=== PATIENT | female | born 1960 | race Caucasian/White ===

== ENCOUNTER 2016-12-03 20:05 | Inpatient (IN) | payer OTHER ==
[~2016-12-03] VITALS: Ht 157.5 cm; Wt 75.5 kg
[2016-12-03 20:47] LABS: PLATELET COUNT 245 x10^3mcL (130-400); RED CELL DISTRIBUTION WIDTH 12.7 % (11.5-14.5)
[2016-12-03 20:57] LABS: CALCIUM 9.3 mg/dL (8.5-10.1); CARBON DIOXIDE 29.8 mmol/L (21-32); CHLORIDE SERUM 102 mmol/L (98-107); CREATININE SERUM 0.8 mg/dL (0.6-1.0); GFR1 > 60 mL/min; GLUCOSE SERUM 139 mg/dL (74-106); POTASSIUM SERUM 3.8 mmol/L (3.5-5.1); SODIUM SERUM 141 mmol/L (136-145)
[2016-12-03 21:12] LABS: ALKALINE PHOSPHATASE 82 U/L (46-116); ALT/SGPT 85 U/L (14-59); AST/SGOT 31 U/L (15-37); BILIRUBIN TOTAL 0.3 mg/dL (0.20-1.00); TOTAL PROTEIN, SERUM 7.6 g/dL (6.4-8.2)
[2016-12-03 23:35] LABS: microscopic required? NO
[2016-12-03 23:42] LABS: urine erythrocyte NEGATIVE (NEGATIVE)
[2016-12-03 23:50] LABS: AMYLASE 43 U/L (25-115); HDL CHOLESTEROL 37 mg/dL (40-60); LIPASE 181 IU/L (73-393)
[2016-12-03 23:51] LABS: CHOLESTEROL 278 mg/dL (<200); CHOLESTEROL/HDL RATIO 7.5; TRIGLYCERIDES 517 mg/dL (<150)
[2016-12-03 23:52] LABS: AMPHETAMINE QUAL UR NONE DETECTED (NEG <=1000)
[2016-12-03 23:58] LABS: FREE T4 0.81 ng/dL (0.76-1.46); FREE THYROXINE INDEX 2.2 ug/dL (1.4-4.5); T4(THYROXINE) 6.4 ug/dL (4.7-13.3)
[2016-12-04] VITALS (8 sets, daily range): BP systolic 105–159; BP diastolic 64–91
[2016-12-04 00:26] LABS: T3 TOTAL 0.95 ng/mL
[2016-12-04 06:57] LABS: BASOPHIL % 0.4 % (0-2); PLATELET COUNT 233 x10^3mcL (130-400)
[2016-12-04 07:22] LABS: CALCIUM 9.5 mg/dL (8.5-10.1); CARBON DIOXIDE 27.4 mmol/L (21-32); CHLORIDE SERUM 102 mmol/L (98-107); CREATININE SERUM 0.8 mg/dL (0.6-1.0); GFR1 > 60 mL/min; GLUCOSE SERUM 137 mg/dL (74-106); PHOSPHOROUS 4.5 mg/dL (2.5-4.9); POTASSIUM SERUM 4.1 mmol/L (3.5-5.1); SODIUM SERUM 139 mmol/L (136-145)
[2016-12-04] MEDS ORDERED: GOOD SENSE OMEP20 MG PO (15:34)
[2016-12-04] MEDS ORDERED: LIPI10 PO (15:45)
[2016-12-04] MEDS ORDERED: METOPROLOL TART25 M1 PO (15:47)
[2016-12-04] MEDS ORDERED: ECO81 PO (15:47)
[2016-12-04] MEDS ORDERED: ZES5 PO (15:48)
== END 2016-12-04 16:36 | disposition home or self-care (01) | DRG 392 ==
LOC: ED 20:05 → DU 22:26 → MU 23:54 → DU 23:59
PROVIDERS: Emergency Medicine; ADMIT Family Medicine
DX: K21.9 Gastro-esophageal reflux disease without esophagitis (principal); I10 Essential (primary) hypertension; E78.5 Hyperlipidemia, unspecified; R73.03 Prediabetes; I16.0 Hypertensive urgency; Z90.710 Acquired absence of both cervix and uterus; Z80.3 Family history of malignant neoplasm of breast; Z83.6 Family history of other diseases of the respiratory system; Z88.1 Allergy status to other antibiotic agents
CPT/HCPCS: 80307; 83880; 84439; 94150; C9113; G0480; J7030; Q0092